=== PATIENT | female | born 1985 | race Caucasian/White ===

== ENCOUNTER 2016-07-26 06:13 | Inpatient (IN) | payer OTHER ==
[~2016-07-26] VITALS: Ht 160 cm; Wt 83.5 kg
[2016-07-26] VITALS (7 sets, daily range): BP systolic 98–126; BP diastolic 55–73; PULSE 82–107; RESP 18–20; TEMP 97.2–98.1; O2SAT 95–98
[2016-07-26] MEDS ORDERED: LACTATED RINGER'S 1000 ML IV SCH (06:45)
[2016-07-26] MEDS ORDERED: ceFAZolin 2 GM PREMIX 50 ML IV SCH (06:45)
[2016-07-26] MEDS ORDERED: CITRIC ACID-SODIUM CITRATE LIQ 30 ML UDC PO SCH (06:45)
[2016-07-26] MEDS ORDERED: LACTATED RINGER'S 1000 ML IV ONE (06:45)
[2016-07-26 06:55] LABS: AUTOMATED NEUTROPHIL # 6.8 TH/MM3 (1.8-7.7); BASOPHIL % 0.3 % (0.0-2.0); EOSINOPHIL % 0.5 % (0.0-4.0); HEMATOCRIT 35.7 % (35.0-46.0); HEMO FLAGS DIFF FINAL; LYMPH % 24.1 % (9.0-44.0); LYMPHOCYTE # 2.4 TH/MM3 (1.0-4.8); MEAN CELL VOLUME 90.6 FL (80.0-100.0); MEAN CORPUSCULAR HEMOGLOBIN 31.8 PG (27.0-34.0); MONO % 6.7 % (0.0-8.0); NEUT % 68.4 % (16.0-70.0); PLATELET COUNT 117 TH/MM3 (150-450); RED BLOOD COUNT 3.94 MIL/MM3 (4.00-5.30); WHITE BLOOD COUNT 9.9 TH/MM3 (4.0-11.0)
[2016-07-26] MEDS ORDERED: PREN29TA PO (06:55)
[2016-07-26] MEDS ORDERED: ZANT150T2 PO (06:55)
[2016-07-26] MEDS ORDERED: OXYTOCIN 10 UNIT/ML AMP ONE (07:02)
[2016-07-26 07:07] LABS: BACTERIA, URINE FEW /hpf; SQUAMOUS EPITHELIAL CELL URINE 1 /hpf (0-5)
[2016-07-26 07:08] LABS: BLOOD, URINE NEG (NEG); GLUCOSE,URINE NEG (NEG); KETONE, URINE NEG (NEG); NITRITE,URINE NEG (NEG); PH, URINE 6.5 (5.0-8.5); URINE COLOR LIGHT-YELLOW (YELLW/STRAW)
[2016-07-26 07:21] LABS: COMMENT (UR) CULT NOT INDICATED; CULTURE IF INDICATED CULT NOT INDICATED
--- NOTE | 2016-07-26 08:50 | PD.OB.DELI ---
Procedure Note Section Procedure Performed by Nik Boucher Procedure: Repeat Low Transverse Sec (Breech) Informed consent obtained: For anesthesia, For procedure Confirmed correct: Patient, Procedure, Site, Time-out taken Anesthesia: Spinal Medication prior to procedure: As documented in eMAR Monitoring during procedure: Blood pressure monitoring, lunchroom monitor, doppler, Pulse oximetry Urinary catheter: Inserted using sterile technique, To dependent drainage Sterile preparation: Duraprep Position: Supine with wedge to right side, Supine with safety belt applied Operative Features Skin Incision: Pfannenstiel Uterine Incision: Low transverse w/knife / scissors Membranes Ruptured: Artificially Presentation: Breech (double footling) Delivery of infant: Uneventful : Female One Minute : 9 Five Minute : 9 Weight: 9# 6 oz Status of infant: Viable, Cord blood, Umbilical cord, Nursery present Placenta delivered: Intact Medications: Antibiotics, Oxytocin Procedure tolerated: Well Maternal Condition: Stable Condition: Stable Nik Boucher MD Jul 26, 2016 08:50
[2016-07-26] MEDS ORDERED: MORPHINE SULFATE PF 5 MG/10 ML VIAL ONE (08:54)
[2016-07-26] MEDS ORDERED: SIMETHICONE 80 MG CHEWABLE TAB PO PRN (09:00)
[2016-07-26] MEDS ORDERED: oxyCODONE/ACETAMINOPHEN 5 MG/325 MG TAB PO PRN ×2 (09:00)
[2016-07-26] MEDS ORDERED: OXYTOCIN 30 UNITS-500ML PREMIX 500 ML IV ONE (09:00)
[2016-07-26] MEDS ORDERED: ACETAMINOPHEN 1000 MG/100 ML VIAL IV ONE ×2 (09:00→09:19)
[2016-07-26] MEDS ORDERED: ONDANSETRON HCL 4 MG/2 ML VIAL IV PUSH PRN (09:00)
[2016-07-26] MEDS ORDERED: SODIUM CHLORIDE 0.9% FLUSH 10 ML FLUSH IV FLUSH SCH (09:00)
[2016-07-26] MEDS ORDERED: SODIUM CHLORIDE 0.9% FLUSH 10 ML FLUSH IV FLUSH PRN (09:00)
[2016-07-26] MEDS ORDERED: OXYTOCIN 30 UNITS-500ML PREMIX 500 ML ONE (09:19)
[2016-07-26] MEDS ORDERED: KETOROLAC TROMETHAMINE 30 MG/ML (IVP) VIAL IV PUSH ONE (12:45)
[2016-07-26] MEDS ORDERED: LACTATED RINGER'S 1000 ML INJ 1,000 ML IV SCH (13:47)
[2016-07-26] MEDS ORDERED: ACETAMINOPHEN/HYDROcodone 325 MG/5 MG TAB PO PRN (17:30)
[2016-07-26] MEDS: ACETAMINOPHEN/HYDROcodone 325 MG/5 MG TAB PO PRN ×2 (18:08→23:08)
[2016-07-26] MEDS ORDERED: OXYTOCIN 30 UNITS-500ML PREMIX 500 ML IV PRN (19:00)
[2016-07-26] MEDS: DOCUSATE SODIUM 50 MG/SENNA 8.6 MG TAB PO PRN (23:08)
[2016-07-26] MEDS: IBUPROFEN 600 MG TAB PO PRN (23:08)
[2016-07-27 01:00] VITALS: BP 97/67; PULSE 82; RESP 17
[2016-07-27 05:20] VITALS: BP 101/65; PULSE 84; RESP 17; TEMP 97.7; O2SAT 98
[2016-07-27] MEDS: IBUPROFEN 600 MG TAB PO PRN ×3 (05:25→20:34)
[2016-07-27] MEDS: ACETAMINOPHEN/HYDROcodone 325 MG/5 MG TAB PO PRN ×5 (05:26→23:18)
[2016-07-27 06:00] LABS: AUTOMATED NEUTROPHIL # 7.4 TH/MM3 (1.8-7.7); BASOPHIL % 0.2 % (0.0-2.0); EOSINOPHIL # 0.1 TH/MM3 (0-0.4); EOSINOPHIL % 0.5 % (0.0-4.0); HEMATOCRIT 32.9 % (35.0-46.0); HEMO FLAGS DIFF FINAL; LYMPH % 23.7 % (9.0-44.0); LYMPHOCYTE # 2.5 TH/MM3 (1.0-4.8); MEAN CELL VOLUME 91.6 FL (80.0-100.0); MEAN CORPUSCULAR HEMOGLOBIN 30.5 PG (27.0-34.0); MEAN CORPUSCULAR HGB CONC 33.2 % (32.0-36.0); MONO % 4.9 % (0.0-8.0); NEUT % 70.7 % (16.0-70.0); PLATELET COUNT 109 TH/MM3 (150-450); RED CELL DISTRIBUTION WIDTH 15.1 % (11.6-17.2); WHITE BLOOD COUNT 10.5 TH/MM3 (4.0-11.0)
[2016-07-27 08:00] VITALS: BP 104/70; PULSE 88; RESP 18; TEMP 99.4
--- NOTE | 2016-07-27 08:36 | HHI.OB ---
Subjective Post Operative Day: 1 Remarks no complaints Objective Vitals/I&O Vital Signs Date Time Temp Pulse Resp B/P Pulse Ox O2 Delivery O2 Flow Rate FiO2 07/27/16 08:00 99.4 88 18 104/70 07/27/16 05:20 97.7 84 17 101/65 98 07/27/16 01:00 82 17 97/67 07/26/16 19:00 87 20 116/73 07/26/16 09:41 116/70 07/26/16 09:40 97.2 07/26/16 09:35 95 07/26/16 09:35 90 18 126/73 07/26/16 09:23 82 18 114/70 07/26/16 09:23 97 07/26/16 09:10 107 18 98/55 97 07/26/16 08:55 93 108/63 07/26/16 08:55 18 98 07/26/16 08:55 98.1 Result Diagram: 07/27/16 0547 Objective Remarks GENERAL: Well-nourished, well-developed patient. CARDIOVASCULAR: Regular rate and rhythm without murmurs, gallops, or rubs. RESPIRATORY: Breath sounds equal bilaterally. No accessory muscle use. ABDOMEN/GI: Abdomen soft, non-tender, bowel sounds present. Incision: Clean, dry and intact. Fundus: Firm, non-tender at umbilicus. GENITOURINARY: Light to moderate bleeding. EXTREMITIES: No cyanosis or edema, non-tender, without signs of DVT. Medications and IVs Current Medications Medications (Trade) Dose Ordered Sig/Tulio Route Start Time Stop Time Status Last Admin Lactated Ringer's 1,000 ml @ 150 mls/hr Q6H40M IV 07/26/16 06:45 07/26/16 06:45 (Lr 1000 ml Inj) 1,000 ml @ 100 mls/hr Q10H IV 07/26/16 13:47 07/27/16 09:46 07/26/16 15:48 (NS Flush) 2 ml BID IV FLUSH 07/26/16 09:00 (NS Flush) 2 ml UNSCH PRN IV FLUSH 07/26/16 09:00 (Mylicon Chew) 80 mg QID PRN PO 07/26/16 09:00 (Motrin) 600 mg Q6H PRN PO 07/26/16 09:00 07/27/16 05:25 (Taylor-Colace) 2 tab Q12H PRN PO 07/26/16 09:00 07/26/16 23:08 (M-M-R Ii Inj) 0.5 ml ONCE ONCE SQ 07/27/16 16:00 07/27/16 16:01 (Boostrix Inj) 0.5 ml ONCE ONCE IM 07/27/16 16:00 07/27/16 16:01 (Zofran Inj) 4 mg Q6H PRN IV PUSH 07/26/16 09:00 07/26/16 10:56 ([place] 5-325 Mg) 1 tab Q4H PRN PO 07/26/16 17:30 07/27/16 05:26 ([place] 5-325 Mg) 2 tab Q4H PRN PO 07/26/16 17:30 Assessment/Plan Problem List: (1) delivery delivered Assessment and Plan POD#1 s/p Discharge Planning routine Attending Attestation pt seen by Bárbara Hills MD Jul 27, 2016 08:36
--- NOTE | 2016-07-27 08:48 | MP ---
cc: DEEPA ASIF MD DATE OF SURGERY 07/25/16 PREOPERATIVE DIAGNOSIS Term intrauterine , previous section, breech presentation. PROCEDURE Repeat low transverse section, delivery of female by breech extraction POSTOPERATIVE DIAGNOSIS Term intrauterine , previous section, breech presentation. SURGEON Helen Asif MD ANESTHESIA Spinal ESTIMATED BLOOD LOSS 600 mL. DRAINS Diaz to gravity OPERATIVE FINDINGS Female weighing 9 pounds 6 ounces, Apgars were nine at 1 minute, nine at five. Double footling breech, uncomplicated, three-vessel cord, intact placenta. Clear fluid. INDICATIONS FOR PROCEDURE Patient with previous section for macrosomia confirmed this , estimated weight over 9 pounds, breech presentation was also evident. The patient received Ancef 2 grams prophylactically. DESCRIPTION OF PROCEDURE The patient was taken to the operative suite, underwent spinal anesthetic with excellent result. She was prepped and draped. Diaz was inserted by sterile technique and sequentials were placed on lower extremities. Time-out was conducted, agreed by all present in the room. The patient had excellent pain control. Previously Pfannenstiel incision was utilized using a #10 blade through the skin through a slightly elliptical incision down through the subcutaneous layer to the fascia which was scored laterally, dissected sharply, dissecting the fascia away from the muscle and then the muscle at the midline identifying the peritoneum and opening it sharply. Transverse incision was made in the lower uterine segment with clear fluid. Breech extraction was identified. Baby was delivered without complication in total. Good tone and cry were noted. Nursery was present. Cord was doubly clamped and cut. The was taken to isolette by the nurse present. Cord sample is obtained. Placenta was removed intact with trailing membranes. No retained tissue was noted. Dom uterus was evident. Uterus was closed with double layer 0 Monocryl first with a running locking suture followed by a second imbricating suture of 0 Monocryl. Examination of the lower segment was dry, no hematoma. Full count was made correct. Peritoneum was then closed in running suture of 2-0 Monocryl. Fascia was then closed with 0 Vicryl in a simple running fashion with good result. Subcutaneous space was irrigated and small bleeders cauterized. It was reapproximated closing it with a 2-0 Monocryl in a simple running fashion. Asya were used to reapproximate skin edge. Dressing was applied. Final count was correct. Infant was doing well in the nursery. MD PATRICK Soni/ /8:54 AM /8:36 AM
[2016-07-27 15:57] VITALS: BP 105/69; PULSE 90; RESP 18
[2016-07-27 16:00] VITALS: TEMP 98.5
[2016-07-27] MEDS ORDERED: DIPHTH/TETANUS/ACEL PERTUSSIS (BOOSTER) 0.5 ML VIAL/PFS IM ONE (16:00)
[2016-07-27] MEDS ORDERED: MEASLES, MUMPS, RUBELLA VACCINE 0.5 ML VIAL SQ ONE (16:00)
[2016-07-27 18:47] VITALS: BP 115/69; PULSE 87; RESP 17; TEMP 97.5
[2016-07-27] MEDS: DOCUSATE SODIUM 50 MG/SENNA 8.6 MG TAB PO PRN (23:18)
[2016-07-28] MEDS: ACETAMINOPHEN/HYDROcodone 325 MG/5 MG TAB PO PRN ×3 (03:08→11:55)
[2016-07-28] MEDS: IBUPROFEN 600 MG TAB PO PRN ×3 (03:08→14:42)
--- NOTE | 2016-07-28 09:44 | HHI.DCPOC ---
Discharge Care Plan Diagnosis: (1) delivery delivered Your Health Problems Are: delivery Report Symptoms to Your Doctor -Temperate above 100.5 degrees -Redness, of incision or excessive or foul smelling drainage -Unusual pain or calf pain -Increased vaginal bleeding -Painful or difficulty urinating -Feelings of extreme sadness or anxiety after 2 weeks Goals to Promote Your Health * To prevent worsening of your condition and complications * To maintain your health at the optimal level Directions to Meet Your Goals Take your medications as prescribed Follow your dietary instruction Follow activity as directed Ensure plenty of rest for recovery Drink fluids for hydration Keep your appointments as scheduled Take your immunizations and boosters as scheduled If your symptoms worsen call your PCP, if no PCP go to Urgent Care Center or Emergency Room Smoking is Dangerous to Your Health. Avoid second hand smoke Call the 24-hour crisis hotline for domestic abuse at Ju Tavarez MD Jul 28, 2016 09:44
--- NOTE | 2016-07-28 09:44 | HHI.OB ---
Subjective Post Operative Day: 2 Remarks doing well, ambulating, passing flatus, no issue with urination pain controlled if taking medication considering going home today Objective Vitals/I&O Vital Signs Date Time Temp Pulse Resp B/P Pulse Ox O2 Delivery O2 Flow Rate FiO2 07/27/16 18:47 97.5 87 17 115/69 07/27/16 16:00 98.5 07/27/16 15:57 90 18 105/69 Result Diagram: 07/27/16 0547 Objective Remarks GENERAL: Well-nourished, well-developed patient. CARDIOVASCULAR: Regular rate and rhythm without murmurs, gallops, or rubs. RESPIRATORY: Breath sounds equal bilaterally. No accessory muscle use. ABDOMEN/GI: Abdomen soft, non-tender, bowel sounds present. Incision: Clean, dry and intact. dee in place Fundus: Firm, non-tender at umbilicus. GENITOURINARY: Light to moderate bleeding. EXTREMITIES: No cyanosis or edema, non-tender, without signs of DVT. Medications and IVs Current Medications Medications (Trade) Dose Ordered Sig/Tulio Route Start Time Stop Time Status Last Admin (Lr 1000 ml Inj) 1,000 ml @ 150 mls/hr Q6H40M IV 07/26/16 06:45 07/26/16 06:45 (NS Flush) 2 ml BID IV FLUSH 07/26/16 09:00 (NS Flush) 2 ml UNSCH PRN IV FLUSH 07/26/16 09:00 (Mylicon Chew) 80 mg QID PRN PO 07/26/16 09:00 (Motrin) 600 mg Q6H PRN PO 07/26/16 09:00 07/28/16 08:55 (Taylor-Colace) 2 tab Q12H PRN PO 07/26/16 09:00 07/27/16 23:18 (Zofran Inj) 4 mg Q6H PRN IV PUSH 07/26/16 09:00 07/26/16 10:56 ([place] 5-325 Mg) 1 tab Q4H PRN PO 07/26/16 17:30 07/28/16 07:46 ([place] 5-325 Mg) 2 tab Q4H PRN PO 07/26/16 17:30 Assessment/Plan Problem List: (1) delivery delivered Assessment and Plan POD#2 s/p cont routine pp care may go home later today, was given rx in office. Discharge Planning routine today or tomorrow Ju Tavarez MD Jul 28, 2016 09:44
== END 2016-07-28 16:20 | disposition home or self-care (01) | DRG 766 ==
LOC: H2EB 06:13 → H1EA 10:18
PROVIDERS: ADMIT Obstetrics & Gynecology; ATTEND Obstetrics & Gynecology
PROC: 10D00Z1 Extraction of Products of Conception, Low, Open Approach (ICD-10-PCS; principal; 2016-07-26)
DX: O32.8XX0 Maternal care for other malpresentation of fetus, not applicable or unspecified (principal); O34.211 Maternal care for low transverse scar from previous cesarean delivery; Z3A.39 39 weeks gestation of pregnancy; Z37.0 Single live birth
CPT/HCPCS: 59025; 81001; 85025; 86850; 86900; 86901; J0131; J0690; J1885; J2274; J2405; J2590; J3010; J7120